=== PATIENT | female | born 1950 | race Caucasian/White ===

== ENCOUNTER 2017-06-25 12:03 | Outpatient (CLI) | payer MEDICARE | END 2017-06-25 12:04 | disposition home or self-care (01) | LOC: BICMAMMO 12:03 | PROVIDERS: ATTEND Physician Assistant | DX: Z12.31 Encounter for screening mammogram for malignant neoplasm of breast (principal) | CPT/HCPCS: 77063; 77067 ==

== ENCOUNTER 2019-12-29 10:48 | Outpatient (CLI) | payer MEDICARE ==
--- NOTE | 2019-12-29 13:13 | MMO ---
Bilateral MAMMO Bilat Screen [facility]. CLINICAL HISTORY: Patient is 69 years old and is seen for screening. The patient has no family history of breast cancer. The patient has no personal history of cancer. VIEWS: The views performed were: bilateral craniocaudal with tomosynthesis and bilateral mediolateral oblique with tomosynthesis. FILMS COMPARED: The present examination has been compared to prior imaging studies performed at [facility] on 02/21/2015 and 06/25/2017, and at [facility] on 02/20/2009. This study has been interpreted with the assistance of computer-aided detection. MAMMOGRAM FINDINGS: There are scattered fibroglandular densities. Benign calcifications are noted bilaterally. There are no suspicious masses, suspicious calcifications, or new areas of architectural distortion. IMPRESSION: THERE IS NO MAMMOGRAPHIC EVIDENCE OF MALIGNANCY. A ROUTINE FOLLOW-UP MAMMOGRAM IN 1 YEAR IS RECOMMENDED. THE RESULTS OF THIS EXAM WERE SENT TO THE PATIENT. ACR BI-RADS Category 2 - Benign finding MAMMOGRAPHY NOTE: 1. A negative mammogram report should not delay a biopsy if a dominant of clinically suspicious mass is present. 2. Approximately 10% to 15% of breast cancers are not detected by mammography. 3. Adenosis and dense breasts may obscure an underlying neoplasm. Reported by: AME ERNANDEZ MD Electonically Signed: [id number]
== END 2019-12-29 10:49 | disposition home or self-care (01) ==
LOC: BICMAMMO 10:48
PROVIDERS: ATTEND Physician Assistant
DX: Z12.31 Encounter for screening mammogram for malignant neoplasm of breast (principal)
CPT/HCPCS: 77063; 77067

== ENCOUNTER 2020-02-29 08:08 | Outpatient (CLI) | payer MEDICARE ==
--- NOTE | 2020-02-29 09:25 | MRI ---
MR the lumbar spine without contrast: 02/29/2020 History: Back pain with radiculopathy COMPARISON: None available TECHNIQUE: Multiplanar multisequence MR images were obtained of lumbar spine without IV contrast FINDINGS: On the basis of 5 lumbar type vertebral bodies, conus medullaris terminates at theL1 level. Sagittal STIR imaging demonstrates no focal area of osseous marrow edema. T12-L1:Mild bilateral facet hypertrophy. Mild disc space narrowing. No central canal or neural forami nal stenosis. L1-2:Mild bilateral facet hypertrophy with no central canal or neural foraminal stenosis. L2-3:Mild bilateral facet hypertrophy. No significant central canal or neural foraminal stenosis. L3-4:Mild bilateral facet hypertrophy and hypertrophy of the ligamentum flavum. No significant centra l canal or neural foraminal stenosis. L4-5:Severe bilateral facet hypertrophy and hypertrophy of the ligamentum flavum with fluid within bi lateral facet joints. Associated L4-5 anterolisthesis measures 6 mm. Severe central canal stenosis and severe bilateral neural foraminal stenosis. L5-S1:Prominent bilateral facet hypertrophy. Bilateral small posterior facet joint synovial cysts. Th ere is disc space narrowing with disc desiccation, disc bulge, and degenerative endplate change. Moderate/severe bilateral neural foraminal stenosis, left greater than right. Mild/moderate central c anal stenosis. Image retroperitoneal structures demonstrateno acute findings. IMPRESSION: Prominent lower lumbar spine degenerative change, most significant at the L4-5 level. Fluid within th e facet joints at this level a signify instability. Flexion and extension radiograph suggested.
== END 2020-02-29 08:09 | disposition home or self-care (01) ==
LOC: BICMRI 08:08
PROVIDERS: ATTEND Physician Assistant
DX: M47.26 Other spondylosis with radiculopathy, lumbar region (principal)
CPT/HCPCS: 72148

== ENCOUNTER 2020-04-26 06:29 | Outpatient (CLI) | payer MEDICARE ==
[2020-04-26 12:05] LABS: Hemoglobin 10.8 g/dL (12.0-16.0); Mean Corpuscular HGB CONC 31.9 G/DL (32.0-36.0); Mean Corpuscular Hemoglobin 25.7 PG (27.0-33.0); Mean Corpuscular Volume 80.5 fl (80.0-100.0); Mean Platelet Volume 10.3 fl (7.4-10.4); Platelet Count 266 10x3/uL (130-400); Red Blood Cell (RBC) Count 4.21 10x6/uL (3.90-5.20); White Blood Cell (WBC) Count 6.4 10x3/uL (4.5-11.0)
[2020-04-26 12:33] LABS: Anion Gap 16 mmol/L (10-20); BUN (Urea Nitrogen) 27 mg/dL (9.8-20.1); Calc. Creatinine Clearance 0 mL/min (70-130); Calcium 8.2 mg/dL (7.8-10.44); Carbon Dioxide 21 mmol/L (23-31); Chloride 105 mmol/L (98-107); Glucose 202 mg/dL (83-110); Potassium 4.7 mmol/L (3.5-5.1); Sodium 137 mmol/L (136-145)
[2020-04-26 17:42] LABS: SARS-CoV-2 MS2 Positive; SARS-CoV-2 N Gene Negative; SARS-CoV-2 S Gene Negative; SARS-CoV-2 by NAA Not Detected (NotDetected); SARS-CoV-2 orf1ab Negative
--- NOTE | 2020-04-26 21:31 | EKG ---
Test Reason : Blood Pressure : / mmHG Vent. Rate : 078 BPM Atrial Rate : 078 BPM P-R Int : 132 ms QRS Dur : 078 ms QT Int : 388 ms P-R-T Axes : 044 -11 019 degrees QTc Int : 442 ms Normal sinus rhythm Low voltage QRS Borderline ECG No previous ECGs available Confirmed by Demetra JOHNSON ([id number]) on 04/26/2020 9:31:08 PM Referred By: JASMINE Confirmed By:Demetra JOHNSON
== END 2020-04-26 06:30 | disposition home or self-care (01) ==
LOC: LABBT 06:29
PROVIDERS: ATTEND Neurological Surgery
DX: Z01.818 Encounter for other preprocedural examination (principal); M43.16 Spondylolisthesis, lumbar region; Z20.828 Contact with and (suspected) exposure to other viral communicable diseases
CPT/HCPCS: 80048; 85027; 93005; U0003; 87635; 93010

== ENCOUNTER 2020-05-01 05:44 | Day surgery (SDC) | payer MEDICARE ==
[2020-05-01] MEDS ORDERED: Midazolam HCl 2 mg/2 ml Vial ONE (06:53)
[2020-05-01] MEDS ORDERED: Fentanyl 100 MCG/2 ML VIAL ONE ×4 (06:53→09:32)
[2020-05-01] MEDS ORDERED: SUGAMMADEX SODIUM 200 MG/2 ML VIAL ONE ×2 (08:32→08:39)
--- NOTE | 2020-05-01 09:12 | OP ---
DATE OF PROCEDURE: 05/01/2020 [place] MONITOR: Shea Santacruz PA-C. PROCEDURES PERFORMED: L4-L5 laminectomy, posterolateral arthrodesis, pedicle screw instrumentation, demineralized bone matrix, local morselized autograft at L4-5. DESCRIPTION OF PROCEDURE: The patient was brought to the operating room and intubated. She was rolled in a prone position on gel-filled chest rolls. An incision was made exposing L4 and L5 and the level was confirmed by x-ray. We performed complete L5 and inferior L4 laminectomy and found extensive synovial debris and significant compression of the neural elements. A complete decompression was achieved. Next, pedicle screws were placed at right L4 and right L5 using lateral fluoroscopic guidance and position was confirmed by x-ray. Jaun was secured between the screws, connected by nuts, which were final tightened. The wound was extensively irrigated. Immaculate hemostasis was secured. A combination of demineralized bone matrix and local morselized autograft was laid over the lamina and posterolateral surfaces for the purpose of arthrodesis. Vancomycin powder was applied and the wound was then closed in anatomic layers. Job ID: [id number]
[2020-05-01] MEDS ORDERED: Dexamethasone 20 MG/5 ML VIAL ONE (10:05)
[2020-05-01] MEDS ORDERED: PROPOFOL 200 MG/20 ML VIAL ONE (10:05)
[2020-05-01] MEDS ORDERED: Lidocaine 1% PF 5 ML VIAL ONE (10:05)
[2020-05-01] MEDS ORDERED: Rocuronium Bromide 10 MG/ML (10ML VIAL) ONE (10:05)
[2020-05-01] MEDS ORDERED: PHENYLEPHRINE-NS 100 MCG/ML 10 ML SYRINGE ONE (10:05)
[2020-05-01] MEDS ORDERED: Ondansetron PF 4 MG/2 ML Vial ONE (10:05)
[2020-05-01] MEDS ORDERED: HYDROcodone/Acetaminophen 5/325 mg Tablet ONE (10:26)
== END 2020-05-01 11:30 | disposition home or self-care (01) ==
LOC: SDC 05:44
PROVIDERS: ATTEND Neurological Surgery
PROC: 0SG00AJ Fusion of Lumbar Vertebral Joint with Interbody Fusion Device, Posterior Approach, Anterior Column, Open Approach (ICD-10-PCS; principal; 2020-05-01)
DX: M43.16 Spondylolisthesis, lumbar region (principal); I10 Essential (primary) hypertension; E11.9 Type 2 diabetes mellitus without complications; F32.9 Major depressive disorder, single episode, unspecified; M19.90 Unspecified osteoarthritis, unspecified site; E03.9 Hypothyroidism, unspecified; E78.5 Hyperlipidemia, unspecified; Z79.899 Other long term (current) drug therapy; Z79.4 Long term (current) use of insulin; Z91.048 Other nonmedicinal substance allergy status
CPT/HCPCS: 36416; 76000; C1713; C1768; J0690; J2250; J3010; J3370; J3490

== ENCOUNTER 2020-05-18 12:27 | Outpatient (CLI) | payer MEDICARE ==
--- NOTE | 2020-05-18 14:43 | RAD ---
LUMBAR SPINE 2 VIEWS: HISTORY: Spondylolisthesis. Followup. COMPARISON: 03/06/2020. FINDINGS: Pedicle screws have been placed on the right at L4-5. Posterior laminectomy changes. The anterolist hesis at L4-5 is again noted. This is a grade I anterolisthesis measured at approximately 7 mm today , less than on the prior study at which time it measured 13 mm. Loss of disk space with degenerative changes at L5-S1 appears stable. IMPRESSION: Postop changes at L4-5 as described. Grade I anterolisthesis at L4-5 as described, improved from rosaline or exam. POS: AGW
== END 2020-05-18 12:28 | disposition home or self-care (01) ==
LOC: TBSIIMAG 12:27
PROVIDERS: ATTEND Neurological Surgery
DX: M43.16 Spondylolisthesis, lumbar region (principal); Z98.890 Other specified postprocedural states
CPT/HCPCS: 72100

== ENCOUNTER 2020-07-19 14:30 | Outpatient (CLI) | payer MEDICARE | END 2020-07-19 14:31 | disposition home or self-care (01) | LOC: TBSIIMAG 14:30 | PROVIDERS: ATTEND Neurological Surgery | DX: M43.16 Spondylolisthesis, lumbar region (principal); M47.816 Spondylosis without myelopathy or radiculopathy, lumbar region; Z98.890 Other specified postprocedural states | CPT/HCPCS: 72100 ==

== ENCOUNTER 2022-12-06 09:19 | Outpatient (CLI) | payer MEDICARE | END 2022-12-06 09:20 | disposition home or self-care (01) | LOC: BICMAMMO 09:19 | PROVIDERS: ATTEND Physician Assistant | DX: Z12.31 Encounter for screening mammogram for malignant neoplasm of breast (principal) | CPT/HCPCS: 77063; 77067 ==

== ENCOUNTER 2022-12-26 12:58 | Outpatient (CLI) | payer MEDICARE | END 2022-12-26 12:59 | disposition home or self-care (01) | LOC: BICULT 12:58 | PROVIDERS: ATTEND Internal Medicine Nephrology | DX: N18.30 Chronic kidney disease, stage 3 unspecified (principal) | CPT/HCPCS: 76770 ==